=== PATIENT | female | born 1945 | race Caucasian/White ===

== ENCOUNTER → 2020-03-11 | Day surgery (SDC) | payer MEDICARE, OTHER ==
--- NOTE | 2020-03-08 12:22 | Diagnostic Imaging Report ---
Chest, 2 views, 03/08/2020. History: Preop, foot surgery. Comparison: None available. Findings: The cardiomediastinal silhouette and pulmonary vasculature are within normal limits. Curvilinear opacity is present in the mid left lung consistent with scarring. The lungs are otherwise clear without evidence of consolidation or pleural effusion. Median sternotomy wires are present. Degenerative changes are present throughout the thoracic spine. There are no acute osseous or soft tissue abnormalities. Impression: No acute cardiopulmonary abnormality. Signed by: Landon Segura on 03/08/2020 12:19 PM
[2020-03-08 12:46] LABS: BASOPHILS # (AUTO) 0.1 (0.0-0.1); BASOPHILS % 0.7 % (0.0-1.0); EOSINOPHILS # (AUTO) 0.5 (0.0-0.4); EOSINOPHILS % 5.5 % (0.0-6.0); HEMATOCRIT 36.9 % (34.2-44.1); HEMOGLOBIN 11.4 g/dL (12.0-16.0); LYMPHOCYTES # (AUTO) 2.2 (1.0-3.2); LYMPHOCYTES % 24.2 % (18.0-39.1); MEAN CORPUSCULAR HEMOGLOBIN 29.4 pg (28-32); MEAN CORPUSCULAR HGB CONC 30.9 g/dL (31-35); MEAN CORPUSCULAR VOLUME 95.1 fL (81-99); MONOCYTES # (AUTO) 0.9 (0.2-0.8); MONOCYTES % 9.7 % (4.4-11.3); NEUTROPHILS # (AUTO) 5.4 (2.1-6.9); NEUTROPHILS % 59.6 % (38.7-80.0); PLATELET COUNT 278 x10e3/uL (140-360); RED BLOOD COUNT 3.88 x10e6/uL (3.6-5.1); RED CELL DISTRIBUTION WIDTH 14.1 % (11.7-14.4)
[2020-03-08 13:27] LABS: ANION GAP 14.8 mmol/L (8-16); CALCIUM 9.7 mg/dL (8.4-10.2); CREATININE, SERUM 1.74 mg/dL (0.57-1.11)
[2020-03-08 13:33] LABS: POTASSIUM 5.8 mmol/L (3.5-5.1)
[~2020-03-11] MED LIST: ACTOS15 MG PO; ASPIR 8181 MG PO; BACLOFEN10 MG PO; BUPIVACAINE HCL 0.5% INJ 30 ML VIAL INJ ONE; CEFAZOLIN SOD 1 GM/NS 50ML 50 ML IV ONE; CYMBALTA30 MG PO; DEXAMETHASONE SOD PHOS INJ 4 MG/ML VIAL ONE; FENTANYL CITRATE/PF 100MCG/2 ML INJ ONE; HUMALOG MI100 UNITS/ SC; LEVOTHYROXINE50 MCG PO; LIDOCAINE HCL 2% LOCAL INJ 5 ML SDV VIAL INJ ONE; LIPITOR10 MG PO; LISINOPRIL2.5 MG PO; LYRICA150 MG PO; METOPROLOL SUCC50 MG PO; ONDANSETRON HCL INJ 2MG/ML 2ML 2 MG/ML VIAL ONE; PROPOFOL IV EMULSION 10 MG/ML 20 ML VIAL ONE; SENNA PO; SEVOFLURANE INHAL SOLN 250 ML PEN BTL ONE; VICTOZA 3-0.6 MG/0.1 SC; VIT D2 PO
[2020-03-11 08:05] VITALS: BP 112/58
--- NOTE | 2020-03-12 14:38 | Operative Report ---
DATE OF PROCEDURE: 03/11/2020 SURGEON: Ryan Chacon DPM ([place]) PREOPERATIVE DIAGNOSIS: Osteomyelitis, 2nd digit, right foot. POSTOPERATIVE DIAGNOSIS: Osteomyelitis, 2nd digit, right foot. OPERATIVE PROCEDURE: Partial amputation, 2nd toe,right foot. DESCRIPTION OF PROCEDURE: The patient was placed on the OR table in the supine position. The right lower extremity was prepped and draped in the usual manner. A general anesthetic was administered and hemostasis accomplished using an Esmarch bandage. An incision was made on the dorsal aspect of the 2nd right toe extending from medial to lateral, approximately midshaft of the middle phalanx. The incision was extended plantarly from medial to lateral. The soft tissue was then dissected away from the proximal interphalangeal joint. The proximal interphalangeal joint was then disarticulated. The head of the proximal phalanx was removed with a bone cutter and remodeled with a rongeur. The skin was then remodeled for closure. The wound was flushed with sterile saline solution and the skin closed with 4-0 nylon. Following the procedure 5 mL of 0.5 Marcaine were injected. A sterile compression dressing was applied. At this time, the Esmarch bandage was removed and a reflex hyperemia was observed to the remaining digits. The patient tolerated the procedures and anesthesia well and left the OR to recovery in good condition with vital signs stable. Ryan Chacon DPM ([place]) /MODL /[id number]
== END | disposition home or self-care (01) ==
LOC: OR 05:08
PROVIDERS: ATTEND Podiatrist Foot & Ankle Surgery
DX: M86.171 Other acute osteomyelitis, right ankle and foot (principal); M86.671 Other chronic osteomyelitis, right ankle and foot; L97.519 Non-pressure chronic ulcer of other part of right foot with unspecified severity; M79.7 Fibromyalgia; G89.29 Other chronic pain; G47.33 Obstructive sleep apnea (adult) (pediatric); I25.10 Atherosclerotic heart disease of native coronary artery without angina pectoris; I11.0 Hypertensive heart disease with heart failure; I50.9 Heart failure, unspecified; E03.9 Hypothyroidism, unspecified; E11.9 Type 2 diabetes mellitus without complications; E66.01 Morbid (severe) obesity due to excess calories; Z88.6 Allergy status to analgesic agent; Z91.041 Radiographic dye allergy status; Z01.810 Encounter for preprocedural cardiovascular examination; Z01.812 Encounter for preprocedural laboratory examination; Z01.818 Encounter for other preprocedural examination; Z11.59 Encounter for screening for other viral diseases; Z79.84 Long term (current) use of oral hypoglycemic drugs; Z79.82 Long term (current) use of aspirin; Z79.4 Long term (current) use of insulin; Z95.5 Presence of coronary angioplasty implant and graft; Z86.73 Personal history of transient ischemic attack (TIA), and cerebral infarction without residual deficits
CPT/HCPCS: 28825; 36415 ×2; 71046; 80048; 82948; 84132; 85025; 87635; 88305; 88311; 93005; J0690; J1100; J2001; J2405; J2704; J3010; 88304

== ENCOUNTER → 2022-06-15 | Day surgery (SDC) | payer MEDICARE ==
[2022-06-12 13:31] LABS: BASOPHILS % 0.5 % (0.0-1.0); EOSINOPHILS # (AUTO) 0.3 (0.0-0.4); EOSINOPHILS % 3.2 % (0.0-6.0); HEMATOCRIT 37.5 % (34.2-44.1); HEMOGLOBIN 11.6 g/dL (12.0-16.0); LYMPHOCYTES # (AUTO) 1.4 (1.0-3.2); LYMPHOCYTES % 17.2 % (18.0-39.1); MEAN CORPUSCULAR HEMOGLOBIN 29.4 pg (28-32); MEAN CORPUSCULAR HGB CONC 30.9 g/dL (31-35); MEAN CORPUSCULAR VOLUME 95.2 fL (81-99); MONOCYTES # (AUTO) 0.7 (0.2-0.8); MONOCYTES % 8.7 % (4.4-11.3); NEUTROPHILS # (AUTO) 5.7 (2.1-6.9); PLATELET COUNT 269 x10e3/uL (140-360); RED BLOOD COUNT 3.94 x10e6/uL (3.6-5.1); RED CELL DISTRIBUTION WIDTH 13.8 % (11.7-14.4)
[2022-06-12 13:46] LABS: ANION GAP 15.9 mmol/L (8-16); BLOOD UREA NITROGEN 22 mg/dL (7-26); BUN/CREATININE RATIO 16 (6-25); CALCIUM 9.4 mg/dL (8.4-10.2); CARBON DIOXIDE 26 mmol/L (22-29); CHLORIDE 105 mmol/L (98-107); CREATININE, SERUM 1.37 mg/dL (0.57-1.11); GLUCOSE 170 mg/dL (74-118); POTASSIUM 4.9 mmol/L (3.5-5.1); SODIUM 142 mmol/L (136-145)
[~2022-06-15] MED LIST changes: +ACETAMINOPHEN 1000 MG/100 ML IV ONE; +B12 ACTIVE1000 MCG IJ; +BUPIVACAINE 0.25% 30ML SDV ONE; -BUPIVACAINE HCL 0.5% INJ 30 ML VIAL INJ ONE; -CEFAZOLIN SOD 1 GM/NS 50ML 50 ML IV ONE; +DEXAMETHASONE SOD PHOS INJ 4 MG/ML SDV ONE; -DEXAMETHASONE SOD PHOS INJ 4 MG/ML VIAL ONE; +LANTUS 3ML100 UNITS/ SC; +PLAVIX75 MG PO; +POVIDONE IODINE 0.05% 0.05 % ML PO ONE; +TRULICITY0.75 MG/0. SQ; +VICODIN HP 10-1 EAC1 PO
[2022-06-15 08:15] VITALS: BP 136/74
== END | disposition home or self-care (01) ==
LOC: OR 06:07
PROVIDERS: ATTEND Podiatrist Foot & Ankle Surgery
DX: M86.072 Acute hematogenous osteomyelitis, left ankle and foot (principal); M06.9 Rheumatoid arthritis, unspecified; M19.90 Unspecified osteoarthritis, unspecified site; I25.810 Atherosclerosis of coronary artery bypass graft(s) without angina pectoris; I44.0 Atrioventricular block, first degree; I49.3 Ventricular premature depolarization; I25.2 Old myocardial infarction; E11.22 Type 2 diabetes mellitus with diabetic chronic kidney disease; I13.0 Hypertensive heart and chronic kidney disease with heart failure and stage 1 through stage 4 chronic kidney disease, or unspecified chronic kidney disease; N18.9 Chronic kidney disease, unspecified; I50.9 Heart failure, unspecified; E78.5 Hyperlipidemia, unspecified; I83.90 Asymptomatic varicose veins of unspecified lower extremity; E03.9 Hypothyroidism, unspecified; E66.9 Obesity, unspecified; M54.2 Cervicalgia; M54.9 Dorsalgia, unspecified; F32.A Depression, unspecified; F41.9 Anxiety disorder, unspecified; Z88.6 Allergy status to analgesic agent; Z91.041 Radiographic dye allergy status; Z01.810 Encounter for preprocedural cardiovascular examination; Z01.812 Encounter for preprocedural laboratory examination; Z01.818 Encounter for other preprocedural examination; Z20.822 Contact with and (suspected) exposure to COVID-19; Z79.82 Long term (current) use of aspirin; Z79.4 Long term (current) use of insulin; Z79.02 Long term (current) use of antithrombotics/antiplatelets; Z79.899 Other long term (current) drug therapy; Z86.73 Personal history of transient ischemic attack (TIA), and cerebral infarction without residual deficits; Z95.1 Presence of aortocoronary bypass graft
CPT/HCPCS: 0223U; 28825; 36415 ×2; 71046; 80048; 82948; 85025; 88305; 88311; 93005; J0131; J0690; J2001; J2405; J2704; J3010; 88304; J1100

== ENCOUNTER 2022-12-28 18:00 | Inpatient (IN) | payer MEDICARE ==
[~2022-12-28] VITALS: Ht 165.1 cm; Wt 111.1 kg
[~2022-12-28 18:00] MED LIST changes: -ACETAMINOPHEN 1000 MG/100 ML IV ONE; -BUPIVACAINE 0.25% 30ML SDV ONE; -DEXAMETHASONE SOD PHOS INJ 4 MG/ML SDV ONE; -FENTANYL CITRATE/PF 100MCG/2 ML INJ ONE; -LIDOCAINE HCL 2% LOCAL INJ 5 ML SDV VIAL INJ ONE; +METOPROLOL TARTRATE INJ 1 MG/ML VIAL ONE; -ONDANSETRON HCL INJ 2MG/ML 2ML 2 MG/ML VIAL ONE; -POVIDONE IODINE 0.05% 0.05 % ML PO ONE; -PROPOFOL IV EMULSION 10 MG/ML 20 ML VIAL ONE; -SEVOFLURANE INHAL SOLN 250 ML PEN BTL ONE
[2022-12-28 18:38] LABS: BASOPHILS % 0.5 % (0.0-1.0); EOSINOPHILS # (AUTO) 0.3 (0.0-0.4); EOSINOPHILS % 4.7 % (0.0-6.0); HEMATOCRIT 28.6 % (34.2-44.1); HEMOGLOBIN 8.9 g/dL (12.0-16.0); LYMPHOCYTES # (AUTO) 1.3 (1.0-3.2); MEAN CORPUSCULAR HGB CONC 31.1 g/dL (31-35); MEAN CORPUSCULAR VOLUME 93.2 fL (81-99); MONOCYTES # (AUTO) 0.7 (0.2-0.8); MONOCYTES % 11.1 % (4.4-11.3); NEUTROPHILS # (AUTO) 3.7 (2.1-6.9); NEUTROPHILS % 62.4 % (38.7-80.0); PLATELET COUNT 302 x10e3/uL (140-360); RED BLOOD COUNT 3.07 x10e6/uL (3.6-5.1); RED CELL DISTRIBUTION WIDTH 14.4 % (11.7-14.4)
[2022-12-28 18:56] LABS: ALBUMIN 3.1 g/dL (3.5-5.0); ALBUMIN/GLOBULIN RATIO 0.7 (0.8-2.0); ANION GAP 17.5 mmol/L (8-16); CALCIUM 9.1 mg/dL (8.4-10.2); CREATININE, SERUM 1.82 mg/dL (0.57-1.11); POTASSIUM 4.5 mmol/L (3.5-5.1)
[2022-12-28] MEDS ORDERED: SODIUM CHLORIDE 0.9% 250ML 250 ML ONE (19:44)
[2022-12-28] MEDS ORDERED: Vancomycin IV 1 GM VIAL ONE (19:44)
[2022-12-28] MEDS ORDERED: Vancomycin IV 1 GM in SODIUM CHLORIDE 0.9% 250ML 250 ML IV ONE (19:45)
[2022-12-28] MEDS ORDERED: DEXTROSE 50% SYRINGE 50 ML IV PRN (20:15)
[2022-12-28 22:12] VITALS: BP 108/54
[2022-12-28 22:22] VITALS: BP 108/54
[2022-12-28 22:23] VITALS: BP 108/54
[2022-12-28] MEDS: Vancomycin IV 1 GM in SODIUM CHLORIDE 0.9% 250ML 250 ML IV SCH (23:21)
[2022-12-29] VITALS (9 sets, daily range): BP systolic 98–134; BP diastolic 46–76
[2022-12-29] MEDS: INSULIN REGULAR, HUMAN 100 UNIT/1 ML SQ SCH ×5 (01:57→21:00)
[2022-12-29] MEDS: HYDROCODONE/APAP 10MG-325MG TAB PO PRN ×3 (02:30→22:02)
[2022-12-29 13:32] LABS: CHOL/HDL RATIO 4.2 (3.0-3.6)
[2022-12-29 13:51] LABS: FERRITIN 139.4 ng/mL (4.63-204.00)
[2022-12-29] MEDS ORDERED: SODIUM CHLORIDE 0.9% 250ML 250 ML ONE (21:07)
[2022-12-29] MEDS: Vancomycin IV 1 GM in SODIUM CHLORIDE 0.9% 250ML 250 ML IV SCH (21:13)
[2022-12-30] VITALS (8 sets, daily range): BP systolic 102–131; BP diastolic 42–64
[2022-12-30] MEDS: ONDANSETRON HCL INJ 2MG/ML 2ML 2 MG/ML VIAL IV PRN (00:12)
[2022-12-30] MEDS: INSULIN REGULAR, HUMAN 100 UNIT/1 ML SQ SCH ×4 (07:30→20:44)
[2022-12-30 07:58] LABS: BASOPHILS % 0.4 % (0.0-1.0); EOSINOPHILS # (AUTO) 0.2 (0.0-0.4); EOSINOPHILS % 2.4 % (0.0-6.0); HEMATOCRIT 26.6 % (34.2-44.1); HEMOGLOBIN 8.5 g/dL (12.0-16.0); LYMPHOCYTES # (AUTO) 1.1 (1.0-3.2); LYMPHOCYTES % 12.8 % (18.0-39.1); MEAN CORPUSCULAR VOLUME 97.1 fL (81-99); MONOCYTES # (AUTO) 0.7 (0.2-0.8); MONOCYTES % 8.5 % (4.4-11.3); NEUTROPHILS # (AUTO) 6.3 (2.1-6.9); NEUTROPHILS % 75.2 % (38.7-80.0); PLATELET COUNT 242 x10e3/uL (140-360); RED BLOOD COUNT 2.74 x10e6/uL (3.6-5.1)
[2022-12-30 08:29] LABS: ANION GAP 13.7 mmol/L (8-16); CALCIUM 8.8 mg/dL (8.4-10.2); CREATININE, SERUM 1.44 mg/dL (0.57-1.11); POTASSIUM 4.7 mmol/L (3.5-5.1)
[2022-12-30] MEDS: HYDROCODONE/APAP 10MG-325MG TAB PO PRN ×3 (08:32→22:17)
[2022-12-30] MEDS: Vancomycin IV 1 GM in SODIUM CHLORIDE 0.9% 250ML 250 ML IV SCH (22:10)
[2022-12-31] VITALS (9 sets, daily range): BP systolic 120–142; BP diastolic 53–73
[2022-12-31] MEDS: HYDROCODONE/APAP 10MG-325MG TAB PO PRN ×3 (02:54→21:51)
[2022-12-31 06:17] LABS: BASOPHILS % 0.2 % (0.0-1.0); EOSINOPHILS # (AUTO) 0.4 (0.0-0.4); EOSINOPHILS % 4.4 % (0.0-6.0); HEMOGLOBIN 8.4 g/dL (12.0-16.0); LYMPHOCYTES # (AUTO) 1.2 (1.0-3.2); LYMPHOCYTES % 13.8 % (18.0-39.1); MEAN CORPUSCULAR HEMOGLOBIN 31.5 pg (28-32); MEAN CORPUSCULAR HGB CONC 32.3 g/dL (31-35); MEAN CORPUSCULAR VOLUME 97.4 fL (81-99); MONOCYTES # (AUTO) 0.9 (0.2-0.8); MONOCYTES % 10.3 % (4.4-11.3); NEUTROPHILS % 70.8 % (38.7-80.0); PLATELET COUNT 246 x10e3/uL (140-360); RED BLOOD COUNT 2.67 x10e6/uL (3.6-5.1)
[2022-12-31 06:33] LABS: ANION GAP 13.3 mmol/L (8-16); CALCIUM 8.6 mg/dL (8.4-10.2); CREATININE, SERUM 1.26 mg/dL (0.57-1.11); POTASSIUM 4.3 mmol/L (3.5-5.1)
[2022-12-31] MEDS: INSULIN REGULAR, HUMAN 100 UNIT/1 ML SQ SCH ×4 (07:30→21:00)
[2022-12-31] MEDS ORDERED: BUPIVACAINE HCL 0.5% 10ML MPF VIAL INJ ONE (11:06)
[2022-12-31] MEDS ORDERED: DEXAMETHASONE SOD PHOS INJ 4 MG/ML SDV ONE (11:06)
[2022-12-31] MEDS ORDERED: FENTANYL CITRATE/PF 100MCG/2 ML INJ ONE (12:14)
[2022-12-31] MEDS ORDERED: POVIDONE IODINE 0.05% 0.05 % ML PO ONE (13:21)
[2022-12-31] MEDS ORDERED: PROPOFOL IV EMULSION 10 MG/ML 20 ML VIAL ONE (13:21)
[2022-12-31] MEDS: ONDANSETRON HCL INJ 2MG/ML 2ML 2 MG/ML VIAL IV PRN (14:13)
[2022-12-31] MEDS: ACETAMINOPHEN 325 MG TAB PO PRN (17:43)
[2023-01-01] VITALS (7 sets, daily range): BP systolic 115–152; BP diastolic 52–71
[2023-01-01] MEDS: INSULIN REGULAR, HUMAN 100 UNIT/1 ML SQ SCH ×4 (07:30→21:00)
[2023-01-01] MEDS: HYDROCODONE/APAP 10MG-325MG TAB PO PRN (09:47)
[2023-01-01] MEDS ORDERED: ALBUTEROL SULF 0.083% NEB SOLN 3 ML NEB ONE (21:00)
[2023-01-01] MEDS ORDERED: IPRATROPIUM BROMIDE 0.02% 2.5 ML NEB ONE (21:02)
[2023-01-01] MEDS ORDERED: LORAZEPAM INJ 2 MG/ML VIAL IV ONE (21:15)
[2023-01-02] VITALS (8 sets, daily range): BP systolic 127–153; BP diastolic 55–93
[2023-01-02] MEDS: INSULIN REGULAR, HUMAN 100 UNIT/1 ML SQ SCH ×4 (07:30→21:55)
[2023-01-02] MEDS: HYDROCODONE/APAP 10MG-325MG TAB PO PRN ×3 (09:50→19:59)
[2023-01-02 15:08] LABS: BASOPHILS % 0.3 % (0.0-1.0); EOSINOPHILS # (AUTO) 0.3 (0.0-0.4); EOSINOPHILS % 5.5 % (0.0-6.0); HEMATOCRIT 30.6 % (34.2-44.1); HEMOGLOBIN 9.5 g/dL (12.0-16.0); LYMPHOCYTES # (AUTO) 0.9 (1.0-3.2); LYMPHOCYTES % 15.1 % (18.0-39.1); MEAN CORPUSCULAR VOLUME 93.3 fL (81-99); MONOCYTES # (AUTO) 0.6 (0.2-0.8); MONOCYTES % 10.1 % (4.4-11.3); NEUTROPHILS # (AUTO) 4.3 (2.1-6.9); NEUTROPHILS % 68.5 % (38.7-80.0); PLATELET COUNT 323 x10e3/uL (140-360); RED BLOOD COUNT 3.28 x10e6/uL (3.6-5.1); RED CELL DISTRIBUTION WIDTH 14.4 % (11.7-14.4)
[2023-01-02 15:30] LABS: ANION GAP 15.9 mmol/L (8-16); CALCIUM 9.1 mg/dL (8.4-10.2); CREATININE, SERUM 1.18 mg/dL (0.57-1.11); POTASSIUM 3.9 mmol/L (3.5-5.1)
[2023-01-02] MEDS ORDERED: ZYVOX600 MG PO (16:42)
[2023-01-02] MEDS: ALBUTEROL SULF 0.083% NEB SOLN 3 ML NEB NEB PRN (20:40)
[2023-01-02] MEDS: IPRATROPIUM BROMIDE 0.02% 2.5 ML NEB NEB PRN (20:40)
[2023-01-03] VITALS (7 sets, daily range): BP systolic 104–148; BP diastolic 52–76
[2023-01-03] MEDS: HYDROCODONE/APAP 10MG-325MG TAB PO PRN ×4 (00:29→21:30)
[2023-01-03] MEDS: INSULIN REGULAR, HUMAN 100 UNIT/1 ML SQ SCH ×4 (07:30→22:09)
[2023-01-03] MEDS ORDERED: LORAZEPAM INJ 2 MG/ML VIAL IV ONE (17:15)
[2023-01-03] MEDS ORDERED: ONDANSETRON HCL 4 MG ORAL DISINTEGRATING TAB PO PRN (19:30)
[2023-01-04] VITALS (8 sets, daily range): BP systolic 97–167; BP diastolic 57–75
[2023-01-04] MEDS: HYDROCODONE/APAP 10MG-325MG TAB PO PRN ×2 (05:32→21:21)
[2023-01-04] MEDS: INSULIN REGULAR, HUMAN 100 UNIT/1 ML SQ SCH ×4 (09:00→21:27)
[2023-01-04] MEDS: ALPRAZOLAM 0.25 MG TAB PO SCH ×3 (09:01→21:19)
[2023-01-04 09:16] LABS: BASOPHILS % 0.3 % (0.0-1.0); EOSINOPHILS # (AUTO) 0.5 (0.0-0.4); EOSINOPHILS % 8.1 % (0.0-6.0); HEMATOCRIT 31.1 % (34.2-44.1); HEMOGLOBIN 9.8 g/dL (12.0-16.0); LYMPHOCYTES # (AUTO) 1.1 (1.0-3.2); LYMPHOCYTES % 17.5 % (18.0-39.1); MEAN CORPUSCULAR HEMOGLOBIN 28.5 pg (28-32); MEAN CORPUSCULAR HGB CONC 31.5 g/dL (31-35); MEAN CORPUSCULAR VOLUME 90.4 fL (81-99); MONOCYTES # (AUTO) 0.5 (0.2-0.8); MONOCYTES % 8.6 % (4.4-11.3); PLATELET COUNT 321 x10e3/uL (140-360); RED BLOOD COUNT 3.44 x10e6/uL (3.6-5.1); RED CELL DISTRIBUTION WIDTH 14.3 % (11.7-14.4)
[2023-01-04 09:35] LABS: ANION GAP 13.6 mmol/L (8-16); CALCIUM 8.8 mg/dL (8.4-10.2); CREATININE, SERUM 1.06 mg/dL (0.57-1.11); POTASSIUM 3.6 mmol/L (3.5-5.1)
[2023-01-04] MEDS: ALBUTEROL SULF 0.083% NEB SOLN 3 ML NEB NEB PRN (22:50)
[2023-01-04] MEDS: IPRATROPIUM BROMIDE 0.02% 2.5 ML NEB NEB PRN (22:50)
[2023-01-05] VITALS (9 sets, daily range): BP systolic 111–148; BP diastolic 56–77
[2023-01-05] MEDS: ALPRAZOLAM 0.25 MG TAB PO SCH ×3 (05:16→21:29)
[2023-01-05] MEDS: INSULIN REGULAR, HUMAN 100 UNIT/1 ML SQ SCH ×4 (07:30→21:00)
[2023-01-05] MEDS: LINEZOLID 600 MG TAB PO SCH ×2 (08:42→16:40)
[2023-01-05] MEDS: ACETAMINOPHEN 325 MG TAB PO PRN ×2 (13:52→21:29)
[2023-01-05] MEDS: ALBUTEROL SULF 0.083% NEB SOLN 3 ML NEB NEB PRN (20:15)
[2023-01-05] MEDS: IPRATROPIUM BROMIDE 0.02% 2.5 ML NEB NEB PRN (20:15)
[2023-01-06] VITALS (8 sets, daily range): BP systolic 124–149; BP diastolic 53–73
[2023-01-06] MEDS: TRAMADOL HCL 50 MG TAB PO PRN ×3 (02:19→21:06)
[2023-01-06] MEDS: ALPRAZOLAM 0.25 MG TAB PO SCH ×3 (06:32→21:07)
[2023-01-06] MEDS: LINEZOLID 600 MG TAB PO SCH ×2 (08:45→16:18)
[2023-01-06] MEDS: INSULIN REGULAR, HUMAN 100 UNIT/1 ML SQ SCH ×4 (08:50→21:14)
[2023-01-06 11:24] LABS: ANION GAP 16.4 mmol/L (8-16); CALCIUM 8.7 mg/dL (8.4-10.2); CREATININE, SERUM 1.22 mg/dL (0.57-1.11); POTASSIUM 3.4 mmol/L (3.5-5.1)
[2023-01-06] MEDS ORDERED: POTASSIUM CHLORIDE 20 MEQ TAB CR PO STA (12:49)
[2023-01-06] MEDS: ACETAMINOPHEN 325 MG TAB PO PRN (21:07)
[2023-01-07] VITALS (8 sets, daily range): BP systolic 133–153; BP diastolic 54–80
[2023-01-07] MEDS: ALPRAZOLAM 0.25 MG TAB PO SCH ×3 (06:48→21:31)
[2023-01-07 07:23] LABS: ANION GAP 15.4 mmol/L (8-16); CALCIUM 8.8 mg/dL (8.4-10.2); CREATININE, SERUM 1.21 mg/dL (0.57-1.11); POTASSIUM 3.4 mmol/L (3.5-5.1)
[2023-01-07] MEDS: INSULIN REGULAR, HUMAN 100 UNIT/1 ML SQ SCH ×4 (07:30→21:30)
[2023-01-07] MEDS: LINEZOLID 600 MG TAB PO SCH ×2 (09:28→16:11)
[2023-01-07] MEDS: TRAMADOL HCL 50 MG TAB PO PRN ×2 (11:02→18:48)
[2023-01-07] MEDS: ALBUTEROL SULF 0.083% NEB SOLN 3 ML NEB NEB PRN (17:15)
[2023-01-07] MEDS: IPRATROPIUM BROMIDE 0.02% 2.5 ML NEB NEB PRN (17:15)
[2023-01-08 05:00] VITALS: BP 123/65
[2023-01-08] MEDS: ACETAMINOPHEN 325 MG TAB PO PRN ×2 (06:14→23:55)
[2023-01-08] MEDS: ALPRAZOLAM 0.25 MG TAB PO SCH ×3 (06:14→20:49)
[2023-01-08] MEDS: ALBUTEROL SULF 0.083% NEB SOLN 3 ML NEB NEB PRN (06:45)
[2023-01-08] MEDS: IPRATROPIUM BROMIDE 0.02% 2.5 ML NEB NEB PRN ×2 (06:45→13:00)
[2023-01-08] MEDS: INSULIN REGULAR, HUMAN 100 UNIT/1 ML SQ SCH ×4 (07:30→23:53)
[2023-01-08 08:00] VITALS: BP 154/69
[2023-01-08] MEDS: LINEZOLID 600 MG TAB PO SCH ×2 (08:36→17:30)
[2023-01-08] MEDS ORDERED: FUROSEMIDE INJ 10 MG/ML 2 ML VIAL IV ONE (12:30)
[2023-01-08 12:48] VITALS: BP 131/64
[2023-01-08] MEDS: TRAMADOL HCL 50 MG TAB PO PRN ×2 (12:54→20:49)
[2023-01-08 17:23] VITALS: BP 137/71
[2023-01-09] VITALS (7 sets, daily range): BP systolic 116–149; BP diastolic 54–69
[2023-01-09] MEDS: ALPRAZOLAM 0.25 MG TAB PO SCH ×3 (05:24→21:12)
[2023-01-09] MEDS: IPRATROPIUM BROMIDE 0.02% 2.5 ML NEB NEB PRN (06:30)
[2023-01-09] MEDS: TRAMADOL HCL 50 MG TAB PO PRN (08:25)
[2023-01-09] MEDS: LINEZOLID 600 MG TAB PO SCH ×3 (08:25→16:31)
[2023-01-09] MEDS: INSULIN REGULAR, HUMAN 100 UNIT/1 ML SQ SCH ×4 (08:28→21:13)
[2023-01-10] VITALS (7 sets, daily range): BP systolic 117–142; BP diastolic 53–70
[2023-01-10] MEDS: ALPRAZOLAM 0.25 MG TAB PO SCH ×3 (05:15→21:00)
[2023-01-10] MEDS: TRAMADOL HCL 50 MG TAB PO PRN ×2 (05:16→22:57)
[2023-01-10] MEDS: INSULIN REGULAR, HUMAN 100 UNIT/1 ML SQ SCH ×4 (07:30→21:02)
[2023-01-10] MEDS: LINEZOLID 600 MG TAB PO SCH (17:28)
[2023-01-10] MEDS: ACETAMINOPHEN 325 MG TAB PO PRN (21:00)
[2023-01-10] MEDS ORDERED: METRONIDAZOLE 250MG/NS 50ML 50 ML IV SCH (22:00)
[2023-01-10] MEDS: LOPERAMIDE HCL 2 MG CAP PO SCH (22:50)
[2023-01-11 01:47] VITALS: BP 135/59
[2023-01-11] MEDS: ALPRAZOLAM 0.25 MG TAB PO SCH (05:14)
[2023-01-11 05:23] VITALS: BP 127/59
[2023-01-11 06:40] LABS: BASOPHILS # (AUTO) 0.1 (0.0-0.1); BASOPHILS % 0.8 % (0.0-1.0); EOSINOPHILS # (AUTO) 0.9 (0.0-0.4); HEMATOCRIT 36.1 % (34.2-44.1); LYMPHOCYTES # (AUTO) 1.3 (1.0-3.2); LYMPHOCYTES % 19.5 % (18.0-39.1); MEAN CORPUSCULAR HEMOGLOBIN 28.6 pg (28-32); MEAN CORPUSCULAR HGB CONC 30.5 g/dL (31-35); MONOCYTES # (AUTO) 0.7 (0.2-0.8); MONOCYTES % 10.2 % (4.4-11.3); NEUTROPHILS # (AUTO) 3.7 (2.1-6.9); PLATELET COUNT 271 x10e3/uL (140-360); RED BLOOD COUNT 3.84 x10e6/uL (3.6-5.1)
[2023-01-11 07:27] LABS: ANION GAP 16.6 mmol/L (8-16); CALCIUM 9.1 mg/dL (8.4-10.2); CREATININE, SERUM 1.43 mg/dL (0.57-1.11); POTASSIUM 3.6 mmol/L (3.5-5.1)
[2023-01-11] MEDS ORDERED: METRONIDAZOLE 500 MG TAB PO SCH (08:00)
[2023-01-11 08:46] VITALS: BP 141/62
[2023-01-11] MEDS ORDERED: METRONIDAZOLE 250MG/NS 50ML 50 ML IV SCH (09:00)
[2023-01-11] MEDS: LINEZOLID 600 MG TAB PO SCH (09:16)
[2023-01-11] MEDS: LOPERAMIDE HCL 2 MG CAP PO SCH (09:16)
[2023-01-11] MEDS ORDERED: FUROSEMIDE INJ 10 MG/ML 2 ML VIAL IV ONE (10:00)
[2023-01-11 12:26] VITALS: BP 110/50
== END 2023-01-11 13:36 | DRG 617 ==
LOC: ER 18:09 → ERHOLD 19:35 → MED/SURG2 20:50 → UNDODISIN 01-11 13:36
PROVIDERS: ADMIT Internal Medicine; ATTEND Internal Medicine
PROC: 0Y6P0Z3 Detachment at Right 1st Toe, Low, Open Approach (ICD-10-PCS; 2022-12-31)
PROC: 0Y6S0Z1 Detachment at Left 2nd Toe, High, Open Approach (ICD-10-PCS; principal; 2022-12-31 12:05)
DX: E11.69 Type 2 diabetes mellitus with other specified complication (principal); E11.52 Type 2 diabetes mellitus with diabetic peripheral angiopathy with gangrene; M86.9 Osteomyelitis, unspecified; I96 Gangrene, not elsewhere classified; Z68.41 Body mass index [BMI] 40.0-44.9, adult; Z20.822 Contact with and (suspected) exposure to COVID-19; E03.9 Hypothyroidism, unspecified; F32.A Depression, unspecified; Z79.4 Long term (current) use of insulin; Z79.82 Long term (current) use of aspirin; E11.42 Type 2 diabetes mellitus with diabetic polyneuropathy; E11.51 Type 2 diabetes mellitus with diabetic peripheral angiopathy without gangrene; E11.621 Type 2 diabetes mellitus with foot ulcer; L97.529 Non-pressure chronic ulcer of other part of left foot with unspecified severity; L97.519 Non-pressure chronic ulcer of other part of right foot with unspecified severity; I25.10 Atherosclerotic heart disease of native coronary artery without angina pectoris; N17.9 Acute kidney failure, unspecified; E11.22 Type 2 diabetes mellitus with diabetic chronic kidney disease; N18.30 Chronic kidney disease, stage 3 unspecified; E78.5 Hyperlipidemia, unspecified; E66.01 Morbid (severe) obesity due to excess calories; I12.9 Hypertensive chronic kidney disease with stage 1 through stage 4 chronic kidney disease, or unspecified chronic kidney disease; B95.2 Enterococcus as the cause of diseases classified elsewhere; Z89.422 Acquired absence of other left toe(s); Z89.421 Acquired absence of other right toe(s); Z86.73 Personal history of transient ischemic attack (TIA), and cerebral infarction without residual deficits; Z95.1 Presence of aortocoronary bypass graft; Z95.5 Presence of coronary angioplasty implant and graft; Z96.653 Presence of artificial knee joint, bilateral
CPT/HCPCS: 0223U; 36415; 71045; 80048; 80053; 80061; 80202; 82607; 82728; 82948; 83036; 83540; 84466; 85025; 87040; 87071; 87075; 87186; 87205; 88304; 88305; 88311; 93925; 94799; 96361; 96372; 99252; 99284; J0692; J1100; J1940; J2060; J2405; J7050